=== PATIENT | male | born 1980 | race Caucasian/White ===

== ENCOUNTER 2024-03-11 10:37 | Emergency (ER) | payer OTHER, MEDICAID ==
[~2024-03-11] VITALS: Ht 175.3 cm; Wt 72.6 kg
[2024-03-11 10:45] VITALS: BP 131/77; PULSE 94; RESP 18; TEMP 97.9; O2SAT 98
[2024-03-11] MEDS ORDERED: ACET500T99 PO (11:26)
[2024-03-11] MEDS: ACETAMINOPHEN EXTRA STRENGTH 500 MG TAB PO ONE (11:30)
== END 2024-03-11 11:50 | disposition home or self-care (01) ==
LOC: MED 10:37
DX: S86.911A Strain of unspecified muscle(s) and tendon(s) at lower leg level, right leg, initial encounter (principal); Z79.899 Other long term (current) drug therapy; Z88.6 Allergy status to analgesic agent; W22.8XXA Striking against or struck by other objects, initial encounter; Y92.89 Other specified places as the place of occurrence of the external cause; Y93.89 Activity, other specified; Y99.8 Other external cause status
CPT/HCPCS: 99282